=== PATIENT | female | born 1955 | race Caucasian/White ===

== ENCOUNTER → 2016-10-03 | Outpatient (CLI) | payer OTHER ==
--- NOTE | 2016-10-03 15:42 | MA ---
Screening Digital Mammogram With iCAD Analysis Clinical Indications: Routine screening. Technique: Standard cephalocaudal and mediolateral oblique projections were obtained. This examinatio n was processed by the iCAD computer aided detection system. Comparison: August 2015, August 2014, July 2013, April 2012, December 2010, September 2009, Decem 2007. Breast density: Type C; Heterogeneously dense. Findings: CAD was reviewed. No masses, suspicious calcifications or other signs of malignancy are id entified. There has been no significant change in the appearance of either breast. Impression: Negative mammogram. BI-RADS 1. Recommendation: Routine mammographic screening in one year as long as physical examination is negativ e in this patient with heterogeneously dense breast tissue. [facility] will send a result letter to the patient. Dense breast parenchyma diminishes mammographic sensitivity. Negative mammography should not preclude additional workup of a clinically suspicious finding. The patient's information is entered into a reminder system with a target due date for her next mammo gram.
--- NOTE | 2016-10-04 08:05 | DX ---
DEXA Bone Densitometry Technique: DEXA scan was performed on Shut Down [employer] W Bone Densitometer Indication: Monitor response to treatment Comparator Study: 2013 Results: Lumbar Spine BMD: 0.826 T-score: -2.0 Prior BMD: 0.774 % change: +6.7% Total Hip (Right) BMD: 0.812 T-score: -1.1 Prior BMD: 0.786 % Change: +3.3% Femoral Neck (Right) BMD: 0.634 T-score: -1.9 Total Hip (Left) BMD: 0.762 T-score: -1.5 Prior BMD: 0.762 % change: 0.0% Femoral Neck (Left) BMD: 0.609 T-score: -2.2 CONCLUSION: Osteopenia In comparison to prior study from July 2014 the patient measured BMD in the lumbar spine is incre ased significantly. The patient" s measured BMD in both hips has not changed significantly. ADDITIONAL COMMENTS: By FRAX calculation, the estimated 10 year probability of any major osteoporotic fracture is 8.5%. Th e estimated 10 year probability of hip fracture is 1.3% Consider repeating the study in 2 years. NOTE: The risk of osteoporotic fractures increases approximately twofold for each 1.0 SD decrease in T-score. The T-score represents the standard deviations from a young normal, same sex, reference po pulation. Low bone density is not the only risk factor for fracture. Clinical factors to consider include fall risk, previous osteoporotic fractures, family history of fractures, smoking, and low body weight. Patients who have an unexpectedly low BMD may need to be evaluated for secondary causes of low bone m ineral density. In comparing the present study to a prior study, lack of a significant increase or decrease in BMD ma y signify efficacy of the patient's present treatment. Bone mineral density measurements performed with densitometers produced by different manufacturers ar e not comparable. For the most reproducible BMD measurement, subsequent exams should be performed on the same densitometer.
== END ==
LOC: BMCIMAGING 14:55
DX: Z12.31 Encounter for screening mammogram for malignant neoplasm of breast (principal); Z13.820 Encounter for screening for osteoporosis; M85.80 Other specified disorders of bone density and structure, unspecified site
CPT/HCPCS: G0202